=== PATIENT | female | born 1965 | race Caucasian/White ===

== ENCOUNTER 2023-02-05 16:19 | Outpatient (CLI) | payer OTHER ==
[2023-02-05 17:20] LABS: EOSINOPHILS # (AUTO) 0.1 K/uL (0.0-0.4); HEMOGLOBIN 12.9 g/dL (12.0-16.0); MEAN CORPUSCULAR HEMOGLOBIN 27 pg (27-31); MONOCYTES # (AUTO) 0.8 K/uL (0.0-1.0)
[2023-02-05 17:25] LABS: BASOPHILS % (AUTO) 0.4 % (0.0-2.0); EOSINOPHILS % (AUTO) 0.6 % (0.0-4.0); HEMATOCRIT 39.1 % (36-48); LYMPHOCYTES # (AUTO) 2.9 K/uL (1.0-5.5); LYMPHOCYTES % (AUTO) 24.5 % (20.5-51.5); MEAN CORPUSCULAR HGB CONC 33 % (32-36); MEAN CORPUSCULAR VOLUME 82 fL (79.0-98.0); MONOCYTES % (AUTO) 6.4 % (1.7-9.3); NEUTROPHILS % (AUTO) 68.1 % (40.0-70.0); PLATELET COUNT (AUTO) 424 K/uL (130-430); RED BLOOD CELL COUNT(AUTO) 4.77 MIL/uL (4.2-6.2); RED CELL DISTRIBUTION WIDTH 14.2 % (9.0-15.0); WHITE BLOOD COUNT (AUTO) 11.7 K/uL (4.8-10.8)
[2023-02-05 17:46] LABS: ALANINE AMINOTRANSFERASE 34 U/L (12-78); ALBUMIN 3.9 g/dL (3.4-4.8); ANION GAP 9 (5-15); ASPARTATE AMINOTRANSFERASE 17 U/L (10-37); CALCIUM 8.7 mg/dL (8.4-11.0); CHLORIDE 98 mmol/L (98-107); CHOLESTEROL 191 mg/dL (<200); CREATININE 0.83 mg/dL (0.55-1.30); GFR AFRICAN AMERICAN 91 mL/min (>90); GLUCOSE 105 mg/dL (74-106); HDL CHOLESTEROL 63 mg/dL (>55); TOTAL BILIRUBIN 0.4 mg/dL (0.0-1.0); TRIGLYCERIDES 61 mg/dL (30-150); UREA NITROGEN, BLOOD 19 mg/dL (8-21)
[2023-02-05 18:40] LABS: THYROID STIMULATING HORMONE < 0.01 uIu/mL (0.34-4.82)
[2023-02-07 06:12] LABS: T4 (THYROXINE) 13.7 ug/dL (4.5-12.0)
== END 2023-02-05 19:50 | disposition short-term general hospital (02) ==
LOC: SLB 16:19
PROVIDERS: ATTEND Internal Medicine
DX: I10 Essential (primary) hypertension (principal); E05.90 Thyrotoxicosis, unspecified without thyrotoxic crisis or storm; Z68.31 Body mass index [BMI] 31.0-31.9, adult
CPT/HCPCS: 36415; 80053; 80061; 82306; 83037; 84436; 84443; 85025

== ENCOUNTER 2023-03-20 07:34 | Outpatient (CLI) | payer OTHER | END 2023-03-20 19:51 | disposition home or self-care (01) | LOC: SUS 07:34 | PROVIDERS: ATTEND Internal Medicine | DX: Z85.850 Personal history of malignant neoplasm of thyroid (principal) | CPT/HCPCS: 76536-TC ==

== ENCOUNTER 2023-09-22 09:29 | Outpatient (CLI) | payer OTHER ==
[2023-09-22 10:22] LABS: THYROID STIMULATING HORMONE 0.1 uIu/mL (0.34-4.82)
== END 2023-09-22 20:26 | disposition home or self-care (01) ==
LOC: SLB 09:29
PROVIDERS: ATTEND Pathology Anatomic Pathology & Clinical Pathology
DX: E89.0 Postprocedural hypothyroidism (principal); R79.9 Abnormal finding of blood chemistry, unspecified; Z85.850 Personal history of malignant neoplasm of thyroid
CPT/HCPCS: 36415; 80061; 83037; 84443